=== PATIENT | female | born 1965 | race Caucasian/White ===

== ENCOUNTER → 2017-04-05 | Outpatient (CLI) | payer OTHER ==
[~2017-04-05] MED LIST: ALL DAY ALLERGY10 M3 PO; AMITIZA8 MCG PO; BACLOFEN10 MG PO; CALCIUM 600 +1 EA11 PO; FISH OIL CONC1000 MG PO; HYDROCODON-ACE1 EAC2 PO; KLONOPIN1 M1 PO; KLONOPIN1 MG PO; NEURONTIN100 MG PO; PREMARIN0.9 MG PO; PRILOSEC PO; PRILOSEC20 MG PO; RELAFEN PO; REQUIP0.25 MG PO; SELFEMRA20 MG PO; TOPROL XL 50 MG50 MG PO; TRAMADOL HCL50 M2 PO; TRIAMTERENE-HC1 EAC1 PO; VIIBRYD40 MG PO; ZYRTEC10 M2 PO
--- NOTE | ~2017-04-05 | CR97 ---
[facility] A Service of [facility] RADIOLOGY TEXT RESULTS PATIENT: SHARON BUNN LOCATION: [facility] : 67 UNIT #: [id number] AGE: [address]: Charan Zeng III, MD SEX: F ORDER DR: [id number] [facility] [address] [place], [place] [address] [id number] O MR#: [id number] Acc #: [id number] NAME: SHARON BUNN : 1965 SEX: F STUDY DATE/TIME: 04/05/2017 10:35 UNIT: [facility] ROOM: STUDY DESCRIPTION: CR Esophagram Attending Physician: Charan Zeng III, M.D. Referring Physician: Charan Zeng III, M.D. Ordering Physician: Charan Zeng III, M.D. Primary Care Physician: Kellee Sandhu M.D. MEDICAL IMAGING REPORT This report is preliminary unless electronic signature is present EXAM Barium esophagram. INDICATIONS Previous lap-band placement. Patient is having vomiting and also pain. Pain is in the region of her left breast. Symptoms for over 1 year. The fluoroscopy time was 0.3 minutes. Six fluoroscopic images were taken. The study is compared with post lap-band radiograph from 08/28/2012. FINDINGS The program eligibility specialist radiograph shows slight tilting of the LAP-band although this may be due to differences in positioning between the study today and the prior abdominal radiograph. The angle of the LAP-band is unchanged. Following administration of barium, there is free flow through the LAP-band without evidence of any slippage. IMPRESSION No evidence for lap-band slippage. Dictated by... Kannan Barrett M.D. THIS IS AN ELECTRONICALLY VERIFIED REPORT Kannan Barrett M.D. at 04/07/2017 5:01 PM ARS/cy TD: 04/06/2017 10:46 JOB #: [id number] MEDICAL IMAGING REPORT Page 1 of 1 COPY
== END | disposition home or self-care (01) ==
LOC: CRAD 10:06
DX: R13.10 Dysphagia, unspecified (principal); Z98.84 Bariatric surgery status
CPT/HCPCS: 74220

== ENCOUNTER → 2017-05-07 | Day surgery (SDC) | payer OTHER ==
--- NOTE | ~2017-05-07 | OR ---
Unit #: [id number] #: [id number] Patient: SHARON BUNN [id number] [address] [place], [place] [address] [id number] O MR#: [id number] NAME: SHARON BUNN ROOM: Date of Procedure: 05/07/2017 Admission Date: 05/07/2017 Surgeon: Charan Zeng III, M.D. : 1965 Attending Physician: Charan Zeng III, M.D. Primary Care Physician: Kellee Sandhu M.D. OPERATIVE REPORT PREOPERATIVE DIAGNOSES Reflux and need for screening colonoscopy. POSTOPERATIVE DIAGNOSES Normal upper and lower endoscopy. PROCEDURE PERFORMED Esophagogastroduodenoscopy with biopsy and colonoscopy to cecum. ANESTHESIA MAC. SPECIMENS Antrum was sent for GORGE testing. COMPLICATIONS None apparent. INDICATIONS FOR PROCEDURE This is a 51-year-old lady, who has been having some reflux that was mostly attributable to her lap-band being too tight. Since it has been deflated, her reflux is better and she started having some left upper quadrant pain. She also is 51 and needs to have a screening colonoscopy. DESCRIPTION OF PROCEDURE After consent was obtained, the patient was brought to the endoscopy suite and placed in the left lateral decubitus position. We titrated the above sedation and I passed an EGD scope easily into the esophagus under direct visualization. She had normal peristalsis. No evidence of any erosions or esophagitis. Her lap-band pouch appeared to be normal size. I was able to easily advance the scope through the opening of the band and the scope was retroflexed within the cardia and her lap-band was in good position with no evidence of an erosion. I examined the rest of the stomach. There were no ulcers or masses. No gastritis. The pylorus was patent and the first and second portions of the duodenum appeared normal. I did take a biopsy of the antrum for GORGE testing. The scope was then straightened and carefully withdrawn. I then performed a rectal exam and did not feel any masses. The scope was placed within the rectal vault. Air was insufflated. I navigated the scope all the way to the cecum without any difficulty. She had normal mucosa. No evidence of any polyps or masses and no diverticular disease was seen. The scope was retroflexed Unit #: [id number] #: [id number] Patient: SHARON BUNN within the rectum and no other masses were seen. The scope was then carefully withdrawn. The patient tolerated the procedure without any problems and returned to the recovery room in stable condition. Dictated by... Charan Zeng III, M.D. VCL/bee TD: 05/07/2017 14:41 JOB #: [id number] OPERATIVE REPORT Page 1 of 1 X Charan Zeng III, MD PROCEDURE OPERATIVE NOTE
== END | disposition home or self-care (01) ==
LOC: COPS 12:45
PROVIDERS: Surgery
PROC: 0DJD8ZZ Inspection of Lower Intestinal Tract, Via Natural or Artificial Opening Endoscopic (ICD-10-PCS; principal; 2017-05-07 14:30)
PROC: 0DB78ZX Excision of Stomach, Pylorus, Via Natural or Artificial Opening Endoscopic, Diagnostic (ICD-10-PCS; 2017-05-07 14:30)
DX: K21.9 Gastro-esophageal reflux disease without esophagitis (principal); R10.12 Left upper quadrant pain; Z12.11 Encounter for screening for malignant neoplasm of colon; Z98.84 Bariatric surgery status; R13.10 Dysphagia, unspecified; I10 Essential (primary) hypertension; M79.7 Fibromyalgia; E78.5 Hyperlipidemia, unspecified; F41.9 Anxiety disorder, unspecified; M48.00 Spinal stenosis, site unspecified; M19.90 Unspecified osteoarthritis, unspecified site; Z87.891 Personal history of nicotine dependence; Z90.710 Acquired absence of both cervix and uterus; Z88.5 Allergy status to narcotic agent; Z88.2 Allergy status to sulfonamides; Z88.0 Allergy status to penicillin; Z88.8 Allergy status to other drugs, medicaments and biological substances
CPT/HCPCS: 43239; G0121; 87077; J2250